=== PATIENT | female | born 1950 | race Caucasian/White ===

== ENCOUNTER → 2017-07-09 12:14 | Outpatient (CLI) | payer MEDICARE, OTHER, SELFPAY ==
--- NOTE | 2017-07-09 | DI.MG.S_ITS ---
BILATERAL DIGITAL SCREENING MAMMOGRAM 3D/2D WITH CAD: 07/09/2017 CLINICAL: Routine screening. Family history of breast cancer. Comparison is made to exams dated: 06/20/2016 mammogram, 06/08/2015 mammogram, and 04/17/2013 mammogram - [facility]. The tissue of both breasts is heterogeneously dense. This may lower the sensitivity of mammography. Current study was also evaluated with a Computer Aided Detection (CAD) system. There is a biopsy clip in the right breast. No significant masses, calcifications, or other findings are seen in either breast. There has been no significant interval change. IMPRESSION: NEGATIVE There is no mammographic evidence of malignancy. A 1 year screening mammogram is recommended. This exam was interpreted at Station ID: [id number]. NOTE: For mammograms, a report in lay terms will be sent to the patient. Approximately 15% of breast malignancies will not be visualized mammographically. In the management of a palpable breast mass, a negative mammogram must not discourage biopsy of a clinically suspicious lesion. Electronically Signed By: John murillo/yaya:07/09/2017 13:17:46 copy to: SHERIN GONZALEZ letter sent: Normal Exam ACR BI-RADS Category 1: Negative [id number]
== END ==
PROVIDERS: Family Provider Specialist; PCP Family Medicine; Visit Provider Family Medicine
DX: Z12.31 Encounter for screening mammogram for malignant neoplasm of breast (principal); Z80.3 Family history of malignant neoplasm of breast; M89.9 Disorder of bone, unspecified; E03.9 Hypothyroidism, unspecified
CPT/HCPCS: 77063; 77067; 77080

== ENCOUNTER 2018-02-15 11:11 | Emergency (ER) | payer MEDICARE, OTHER, SELFPAY ==
[2018-02-15] VITALS (9 sets, daily range): BP systolic 92–127; BP diastolic 50–65; PULSE 57–82; RESP 9–22; O2SAT 95–100
--- NOTE | 2018-02-15 11:32 | DI.RAD.S_ITS ---
PROCEDURE: XR CHEST 1V INDICATIONS: thoracic back pain/radiates to arm/tingling TECHNIQUE: One view of the chest was acquired. COMPARISON: None. FINDINGS: Surgical changes and devices: None. Lungs and pleura: No pleural effusions or pneumothorax. Lungs are clear. Mediastinum: Mediastinal contours appear normal. Heart size is normal. Bones and chest wall: No suspicious bony lesions. Overlying soft tissues appear unremarkable. IMPRESSION: Normal for age, source of pain radiating into the arm is not identified. Dictated by: Jovna Kern M.D. on 02/15/2018 at 12:17 Approved by: Jovan Kern M.D. on 02/15/2018 at 12:18
--- NOTE | 2018-02-15 11:33 | ED.CHESTPAIN ---
HPI - Chest Pain General Chief Complaint: Chest Pain Stated Complaint: BACK/ARM/CHEST PAIN Time Seen by Provider: 02/15/18 11:32 Source: patient and old records reviewed Mode of arrival: ambulatory Limitations: no limitations History of Present Illness HPI narrative: This is a 67-year-old female who comes in with complaint of thoracic back pain that is radiating to her anterior chest and down her left arm. Patient states it started Sunday. She was at [facility] with her who is having surgery. She was evaluated you would have had cardiac workup, sounds like a PE study/dissection study Um and evaluation for PE, aortic rupture or dissection, just pain/cardiac cause with no specific cause found. Patient states she was told that it might be musculoskeletal, versus shingles or another cause. Patient has not had any rash or skin changes so far. She states it is painful with movement particularly movement of her left upper extremity, she states she is having no tingling or numbness but just discomfort. Patient states hurts or is painful to take a deep inhalation. It radiates to the front of her chest the anterior side with the left arm and sort of down under the breast. Patient states she is not short of breath except for pain with inspiration. She has not had any passing out, no nausea, no vomiting no GI or urinary symptoms. Patient has been taking Tylenol she states 1500 mg every 4 hr for the last 2 days, she has only had 1 dose today. She has also been taking a muscle relaxer without any improvement. She denies any diarrhea or constipation she denies any urinary symptoms. She denies any change in her pain. She states it has been constant the entire time but does seem to get worse or better but does not go way. Patient has not had any recent trauma, injuries or similar issues recently. Related Data Home Medications Medication Instructions Recorded Confirmed calcium carbonate-vitamin D3 1 tab PO BID 02/15/18 02/15/18 [Calcium 500 + D (D3)] cholecalciferol (vitamin D3) 2,000 unit PO QPM 02/15/18 02/15/18 [Vitamin D3] estradiol [Estrace] 1 mg PO QPM 02/15/18 02/15/18 estradiol [Vagifem] 10 mcg VAGINAL 2XW 02/15/18 02/15/18 estradiol [Vivelle-Dot] 1 patch TRANSDERMAL 2XW 02/15/18 02/15/18 [id number]-[id number]-ast 1 cap PO QPM 02/15/18 02/15/18 [krill oil] levothyroxine [Tirosint] 150 mcg PO QPM 02/15/18 02/15/18 multivitamin 1 tab PO QPM 02/15/18 02/15/18 simvastatin [Zocor] 40 mg PO BEDTIME 02/15/18 02/15/18 spironolactone [Aldactone] 25 mg PO QPM 02/15/18 02/15/18 vitamin E 200 unit PO QPM 02/15/18 02/15/18 Previous Rx's Medication Instructions Recorded gabapentin 300 mg PO TID #30 cap 02/15/18 oxycodone-acetaminophen [Percocet] 1 tab PO Q4-6H PRN #10 tab 02/15/18 prednisone See Label Instructions PO PER PKG 02/15/18 DIR #21 each Allergies Allergy/AdvReac Type Severity Reaction Status Date / Time nitrofurantoin Allergy Mild SOB, tired Verified 02/15/18 13:31 [From MACROBID] pravastatin [PRAVASTATIN] Allergy Mild CHEST PAIN Verified 02/15/18 13:31 Sulfa (Sulfonamide Allergy Mild RASH Verified 02/15/18 13:31 Antibiotics) [SULFA (SULFONAMIDE ANTIBIOTICS)] Review of Systems Review of Systems All systems reviewed & are unremarkable except as noted in HPI and below Constitutional Denies fever(s) ENT Ears, Nose, Mouth, and Throat: Denies neck pain Cardiovascular Reports chest pain (Worse with movement), Denies diaphoresis, Denies syncope, Denies edema, Denies irregular heart rhythm, Denies lightheadedness, Reports radiating jaw, neck or arm pain, Denies palpitations, Denies dyspnea, Denies dyspnea on exertion and Denies orthopnea Respiratory Denies chest congestion, Denies cough, Reports pain on inspiration, Denies pain with cough, Denies dyspnea, Denies dyspnea on exertion and Denies wheezing Gastrointestinal Gastrointestinal: Denies abdominal pain, Denies change in bowel habits, Denies diarrhea, Denies nausea and Denies vomiting Genitourinary Denies urinary frequency, Denies dysuria, Denies flank pain and Denies urinary urgency Musculoskeletal Reports as per HPI, Reports back pain (Thoracic pain), Denies arthralgias, Denies neck pain and Reports radiating pain into limb (Left arm) Neurologic Denies syncope Endocrine Denies palpitations Allergic/Immunologic Denies wheezing FOR[facility]LY [facility] Medical History Acne (Chronic ~1971) Body aches (Chronic ~2012) Diverticular disease (Chronic ~2004) Endometriosis (Chronic ~1997) Fibroids (Chronic ~1997) History of irregular menstrual cycles (Chronic ~1959) History of painful menstruation (Chronic ~1979) Hypothyroidism (Chronic ~1999) Infertility (Chronic ~1979) Menstrual bleeding problem (Chronic ~1959) Migraines (Chronic ~2004) Muscle ache (Chronic ~2012) Osteoarthritis (Chronic ~2005) Shoulder pain (Chronic ~2011) Vertigo (Chronic ~1984) Surgical History Anesthesia (Resolved) History of hysterectomy (Resolved ~1997) History of tonsillectomy Status post delivery Status post hysterectomy Social History household members: spouse pets and animals: No education level: master's degree occupational status: other leisure activities: other other: Skiing, hiking, walking, kayaking seatbelt use: always helmet use: Yes water heater temp set < 120 deg: Yes working smoke detector in home: Yes fire extinguisher in home: Yes carbon monox detector in home: Yes firearms in home: No Smoking Status: Never smoker alcohol intake: current substance use type: does not use during the past year weight has: remained stable well-balanced diet: daily or most days daily servings fruits/ve-4 caffeine: Yes (2+ caffeine drinks per day) eating out: 1-3 times/week frequency: 5-6 times per week duration: 60-90 minutes/day Exam Narrative Exam Narrative: GENERAL: Alert and oriented x three, well-nourished, well-appearing female in moderate distress. HEENT: Head normocephalic, atraumatic, EOMI, pupils reactive, face symmetric, moist mucous membranes NECK: Supple, full range of motion CARDIOVASCULAR: Regular rate and rhythm without murmurs, rubs or gallops. RESPIRATORY: Breath sounds equal bilaterally, no wheezes rales or rhonchi. ABDOMEN: Soft, nontender. Normoactive bowel sounds all 4 quadrants. No guarding or rebound, rigidity, no mass : No CVA tenderness BACK: No cervical, thoracic or lumbar vertebral point tenderness. Patient does have some point tenderness in the soft tissue medial to the left scapula. Patient does have some spasm and muscle tissue tightness. Patient has full range of motion although she has discomfort with AB duction and 80 duction as well as flexion extension. Patient's gait is normal. Muscle strength is 5/5 in upper extremities, DTRs are 2/4 and lower extremities. Radial pulses 2+ bilaterally. Sensation is normal bilaterally. EXTREMITIES: Normal range of motion, no clubbing or edema. Neurovascularly intact. NEUROLOGICAL: Cranial nerves II through XII grossly intact. Moving all extremities SKIN: Warm, dry, no petechiae, no rashes or lesions. Initial Vital Signs Initial Vital Signs: Vital Signs Pulse Rate 82 02/15/18 11:21 Respiratory Rate 18 02/15/18 11:21 Blood Pressure 103/65 02/15/18 11:21 Pulse Oximetry 100 02/15/18 11:21 Course Orders Ordered: ED Orders 02/15/18 11:25 Complete Blood Count AUTO DIFF Stat Comprehensive Metabolic Panel Stat D Dimer Stat Hepatic (Liver) Panel Stat Lipase Stat Partial Thromboplastin Time Stat Prothrombin Time INR Stat Troponin & CK Cardiac Panel Stat 02/15/18 11:32 XR chest 1V Stat 02/15/18 12:54 CT cervical spine wo con Stat CT thoracic spine wo con Stat Discontinued Medications Aspirin (Aspirin Chew) 324 mg PO NOW ONE Stop: 02/15/18 11:33 Last Admin: 02/15/18 12:44 Dose: 162 mg Hydromorphone HCl (Dilaudid) 0.5 mg IV NOW ONE Stop: 02/15/18 12:54 Last Admin: 02/15/18 12:59 Dose: 0.5 mg Hydromorphone HCl (Dilaudid) 0.5 mg IV NOW ONE Stop: 02/15/18 14:45 Last Admin: 02/15/18 14:56 Dose: 0.5 mg Sodium Chloride (Normal Saline 0.9%) 1,000 mls @ 1,000 mls/hr IV BOLUS ONE Stop: 02/15/18 12:31 Last Infusion: 02/15/18 14:22 Dose: 0 mls/hr Admin: 02/15/18 12:44 Dose: 1,000 mls/hr Sodium Chloride (Normal Saline 0.45%) 500 mls @ 1,000 mls/hr IV BOLUS ONE Stop: 02/15/18 15:53 Last Admin: 02/15/18 16:31 Dose: Not Given Sodium Chloride (Normal Saline 0.45%) 500 mls @ 1,000 mls/hr IV BOLUS PRN PRN Reason: Fluid replacement Sodium Chloride (Normal Saline 0.9%) 500 mls @ 1,000 mls/hr IV BOLUS ONE Stop: 02/15/18 15:57 Last Infusion: 02/15/18 16:12 Dose: 0 mls/hr Admin: 02/15/18 15:29 Dose: 1,000 mls/hr Lorazepam (Ativan) 1 mg PO NOW ONE Stop: 02/15/18 13:31 Last Admin: 02/15/18 13:40 Dose: 1 mg Methylprednisolone (Solu-Medrol 125 Mg Vial) 80 mg IV NOW ONE Stop: 02/15/18 14:45 Last Admin: 02/15/18 14:56 Dose: 80 mg Ondansetron HCl (Zofran) 4 mg IV NOW ONE Stop: 02/15/18 12:54 Last Admin: 02/15/18 12:59 Dose: 4 mg Vital Signs - 8 hr 02/15/18 11:21 02/15/18 12:13 02/15/18 13:05 Pulse Rate 82 75 63 Respiratory Rate 18 22 15 Blood Pressure 103/65 Blood Pressure [Right Arm] 127/59 L 108/50 L Pulse Oximetry 100 99 100 02/15/18 13:47 02/15/18 14:00 02/15/18 14:30 Pulse Rate 63 57 L 67 Respiratory Rate 11 L 12 16 Blood Pressure Blood Pressure [Right Arm] 100/61 94/52 L 97/55 L Pulse Oximetry 96 100 99 02/15/18 15:01 02/15/18 15:43 02/15/18 16:13 Pulse Rate 64 67 74 Respiratory Rate 15 9 L 14 Blood Pressure Blood Pressure [Right Arm] 92/56 L 98/54 L 98/53 L Pulse Oximetry 100 95 96 MDM - Chest Pain Lab Data Attestation: I reviewed the patient's lab results. Result diagrams: 02/15/18 11:25 02/15/18 11:25 Lab Results 02/15/18 02/15/18 02/15/18 Range/Units 11:25 11:25 11:25 WBC 5.4 (4.5-11.0) X10^3/uL RBC 4.79 (4.0-5.2) X10^6/uL Hgb 14.9 (12.0-16.0) g/dL Hct 44.0 (36-46) % MCV 92.0 (80-100) fL MCH 31.2 (26-34) PG MCHC 33.9 (30-36) % RDW 13.6 (11.6-14.8) % Plt Count 244 (150-400) X10^3/uL Neut % (Auto) 47.2 L (50-75) % Lymph % (Auto) 39.0 (25-40) % Cameron % (Auto) 9.3 (3-14) % Eos % (Auto) 3.5 (2-4) % Baso % (Auto) 1.0 (0-2) % Neut # (Auto) 2500 (1662-9786) /uL PT 11.6 (10.1-12.7) SECONDS INR 1.0 (0.9-1.3) APTT 29 (26.4-36.2) SECONDS D-Dimer < 200 (<230) ng/mL Sodium 140 (137-145) mmol/L Potassium 4.5 (3.4-5.1) mmol/L Chloride 104 (98-107) mmol/L Carbon Dioxide 26 (22-32) mmol/L BUN 15 (7-17) mg/dL Creatinine 0.60 (0.52-1.04) mg/dL Estimated GFR > 60.0 (>60) mL/min BUN/Creatinine Ratio 25.0 H (6-22) Glucose 97 (80-110) mg/dL Calcium 9.6 (8.4-10.2) mg/dL Total Bilirubin 0.5 (0.2-1.3) mg/dL Conjugated Bilirubin 0.0 (0.0-0.3) md/dL Unconjugated Bilirubin 0.3 (0.0-1.1) mg/dL AST 29 (14-36) IU/L ALT 37 (9-52) IU/L Alkaline Phosphatase 49 (38-126) U/L Total Creatine Kinase 42 (30-135) U/L CK-MB (CK-2) TNP CK-MB (CK-2) Rel Index TNP Troponin I < 0.012 (0.01-0.034) ng/mL Total Protein 7.1 (6.3-8.2) g/dL Albumin 4.2 (3.5-5.0) g/dL Globulin 2.9 (1.7-4.1) g/dL Albumin/Globulin Ratio 1.4 (1.0-2.8) Lipase 97 (23-300) U/L Urine Dip Bedside Urine Glucose Negative Bedside Urine Bilirubin - Negative Bedside Urine Ketone - Negative Urine Specific [place] 1.010 Bedside Urine Occult Blood - Negative Bedside Urine pH 605 Bedside Urine Protein - Negative Bedside Urine Urobilinogen - Negative Bedside Urine Nitrite - Negative Bedside Urine Leukocytes - Negative Esterase Imaging Data CT neck: Radiologist's impression: [address] [address] [address] Scan Report Signed Patient: Shonna Aguilar MR#: [id number] : 1950 Acct:[id number] Age/Sex: 67 / F Date of Service: 02/15/18 Loc: ED Accession Number: [id number] Procedure: CT cervical spine wo con Ordering Provider: Yvonne Mtz D.O. PROCEDURE: CT CERVICAL SPINE WO CON INDICATIONS: thoracic/arm pain, intractable, worsening TECHNIQUE: Noncontrast 3 mm thick sections acquired from the skull base to the T4 level. Sagittal and coronal reformats were then constructed. For radiation dose reduction, the following was used: automated exposure control, adjustment of mA and/or kV according to patient size. COMPARISON: [facility], CR, XR CHEST 1V, 02/15/2018, 12:04. FINDINGS: Image quality: Excellent. Bones: No fractures or dislocations. Visualized superior ribs are intact. There is moderate to moderately severe degenerative disc disease from C4-5 through C6-7. Both anterior and posterior projecting osteophytes are present along the mid cervical spine best seen at C5-6 and C6-7. Significant spinal and foraminal stenosis in this region appears present. Soft tissues: Prevertebral soft tissues are normal in thickness. No paravertebral hematomas. No apical pneumothoraces. IMPRESSION: Moderately severe degenerative disc disease and facet osteoarthritis along the middle and lower thirds of the cervical spine with posterior projecting osteophytes most prominent at C5-6 and C6-7 to the degree that significant spinal and stenosis and potential for nerve root impingement appears present. No fracture is found. MR scanning may be warranted given its higher ability for detection of disc herniation and visualization of severity of spinal canal and foraminal nerve root impingement. No inflammation seen, no trauma suspected. No subluxation found. Dictated by: Jovan Kern M.D. on 02/15/2018 at 13:36 Approved by: Jovan Kern M.D. on 02/15/2018 at 13:39 CT thoracic: Radiologist's impression: [place] [address] CT Scan Report Signed Patient: Shonna Aguilar MR#: [id number] : 1950 Acct:[id number] Age/Sex: 67 / F Date of Service: 02/15/18 Loc: ED Accession Number: [id number] Procedure: CT thoracic spine wo con Ordering Provider: Yvonne Mtz D.O. PROCEDURE: CT THORACIC SPINE WO CON INDICATIONS: thoracic/arm pain on left intractable, worsening TECHNIQUE: Noncontrast 3 mm thick sections acquired through the region of interest in the thoracic spine. Sagittal and coronal reformats were then constructed. For radiation dose reduction, the following was used: automated exposure control. COMPARISON: [facility], CR, XR CHEST 1V, 02/15/2018, 12:04. [facility], CT, CT CERVICAL SPINE WO CON, 02/15/2018, 13:05. FINDINGS: Image quality: Excellent. Bones: There is normal overall bony alignment. No acute vertebral body compression fractures. No suspicious sclerotic or lytic bony lesions. Central spinal canal is of normal overall caliber. Mild degenerative disc disease is seen along the thoracic spine without evidence of fracture, inflammation or subluxation an area of spinal or foraminal stenosis is not seen. Soft tissues: No paravertebral masses or hematomas. Visualized posteromedial lungs appear clear. Multiple faceted gallstones are seen layering dependently within the gallbladder lumen the largest of which measures up to 1 cm in diameter. IMPRESSION: No acute disease over the thoracic spine. Mild degenerative disc disease and facet osteoarthritis is present without definite nerve root impingement. Note is made of multiple faceted gallstones within the gallbladder lumen, peripherally calcified, measuring up to 1 cm. Acute cholecystitis is not found. Dictated by: Jovan Kern M.D. on 02/15/2018 at 13:39 Approved by: Jovan Kern M.D. on 02/15/2018 at 13:41 ECG Data Attestation: I personally reviewed and interpreted this ECG as follows: Prior ECG tracings: available for review Interpretation: Rhythm with a rate of 74, P are interval of 153, QRS of 83, QTC of 398. No ST elevation or depression noted. Patient has a prior EKG from [facility] that appears similar from 02/11/2018. [facility] Narrative Medical decision making narrative: Discussed with patient I suspect her findings may initially be possibly thoracic although we did do troponin, EKG which not show any acute changes. The rest of her lab work was normal. She had CT angiography [facility] to rule out pulmonary embolism and for evaluation of aortic dissection both which were negative. Patient's symptoms have been constant without any changing so I suspect that this is not the case. CT of the cervical thoracic spine was ordered and patient does have some significant spinal stenosis and potential for nerve root impingement at C5 through C7 changing. This would be consistent with patient's symptoms of pain in the thoracic area and radiating down towards left arm. Discussed with patient plan for a short course of steroid it, pain medication for pain control and need for follow-up with either primary care for MRI and or orthopedic surgery. Patient was given a referral. We discussed signs symptoms to watch for and reasons to return emergently. Patient given second dose of pain medications and much improved pain, she is able to sleep in the room. Discharge Plan Departure Patient Disposition: Home Clinical Impression: Cervical radiculopathy, acute Discharge Date/Time: 02/15/18 16:32 Interventions: ED Discharge Assessment Last Done: 02/15/18 16:32 Instructions: DI for Cervical Radiculopathy Activity Restrictions/Additional Instructions: Follow up with your physician and/or orthopedic surgery in the next 3-5 days for recheck. Take steroids until gone. Take this medication with food. You may continue to take ibuprofen 800 mg every 8 hr as needed for pain. You may take Percocet 1 tablet every 6 hr as needed for breakthrough pain. This medication can make you sleepy do not drive, perform hazards activities or make any major decisions while taking this medication. You may take tylenol instead of Percocet but now with it. You should not take more than 3000mg tylenol in a 24 hour period. Return to the emergency department for new weakness, numbness difficulty with head porter baggage or inability to raise or move your arm, sudden worsening of symptoms or new or concerning symptoms. Prescriptions: New prednisone 10 mg tablets,dose pack See Label Instructions PO PER PKG DIR Qty: 21 RF: 0 oxycodone-acetaminophen [Percocet] 5-325 mg tablet 1 tab PO Q4-6H PRN (Reason: pain) Qty: 10 RF: 0 gabapentin 300 mg capsule 300 mg PO TID Qty: 30 RF: 0 No Action multivitamin Tablet 1 tab PO QPM RF: 0 estradiol [Estrace] 1 mg Tablet 1 mg PO QPM RF: 0 calcium carbonate-vitamin D3 [Calcium 500 + D (D3)] 500 mg(1,250mg) -125 unit Tablet 1 tab PO BID RF: 0 nbarq-ga-[id number]-rhy-suk-znbwocg-ast [krill oil] 1,734-505-00-80 mg Capsule 1 cap PO QPM RF: 0 spironolactone [Aldactone] 25 mg tablet 25 mg PO QPM RF: 0 simvastatin [Zocor] 40 mg tablet 40 mg PO BEDTIME RF: 0 levothyroxine [Tirosint] 150 mcg capsule 150 mcg PO QPM RF: 0 vitamin E 200 unit Capsule 200 unit PO QPM RF: 0 estradiol [Vivelle-Dot] 0.0375 mg/24 hr Patch Semiweekly 1 patch TRANSDERMAL 2XW RF: 0 cholecalciferol (vitamin D3) [Vitamin D3] 2,000 unit Tablet 2,000 unit PO QPM RF: 0 estradiol [Vagifem] 10 mcg Tablet 10 mcg VAGINAL 2XW RF: 0 Referrals: Libia Sheehan MD [Physician] - Massimo Hurtado MD [Primary Care Provider] -
--- NOTE | 2018-02-15 11:38 | PC.NURSE ---
Pt c/o L back radiating to L chest pain. Pt reports had a work up done several days ago at with same sx. Pain continue to be there and now worse as 11/28. Has been taking OTC meds and muscle relaxant at home but w/o relief. Pt reports sob when pain is severe and dizziness when stands up fast due to known low BP. Pain worse with palpations and no rash noted on the affected site.
[2018-02-15 11:42] LABS: Add Manual Diff / Slide Review NO; Eosinophils Percent Auto 3.5 % (2-4); Hemoglobin 14.9 g/dL (12.0-16.0); Mean Corpuscular HGB Conc 33.9 % (30-36); Mean Corpuscular Hemoglobin 31.2 PG (26-34); Monocytes Percent Auto 9.3 % (3-14); Neutrophils Absolute Auto 2500 /uL (1500-7000); Neutrophils Percent Auto 47.2 % (50-75); Platelet Count 244 X10^3/uL (150-400); Prothrombin Time 11.6 SECONDS (10.1-12.7); Red Blood Cell Count 4.79 X10^6/uL (4.0-5.2); Red Cell Distribution Width 13.6 % (11.6-14.8); White Blood Cell Count 5.4 X10^3/uL (4.5-11.0)
[2018-02-15 11:44] LABS: PTT Partial Thromboplastin Tim 29 SECONDS (26.4-36.2)
[2018-02-15 11:45] LABS: D Dimer < 200 ng/mL (<230)
[2018-02-15 11:46] LABS: Alanine Aminotransferase 37 IU/L (9-52); Albumin 4.2 g/dL (3.5-5.0); Albumin Globulin Ratio 1.4 (1.0-2.8); Alkaline Phosphatase 49 U/L (38-126); Aspartate Aminotransferase 29 IU/L (14-36); Bilirubin Total 0.5 mg/dL (0.2-1.3); Bilirubin Unconjugated 0.3 mg/dL (0.0-1.1); Blood Urea Nitrogen 15 mg/dL (7-17); Calcium 9.6 mg/dL (8.4-10.2); Carbon Dioxide 26 mmol/L (22-32); Chloride 104 mmol/L (98-107); Creatine Kinase 42 U/L (30-135); Estimated Glomerular Filt Rate > 60.0 mL/min (>60); Globulin 2.9 g/dL (1.7-4.1); Glucose 97 mg/dL (80-110); HEMOLYSIS < 15 (0-50); Lipase 97 U/L (23-300); Potassium 4.5 mmol/L (3.4-5.1); Sodium 140 mmol/L (137-145); Total Protein 7.1 g/dL (6.3-8.2)
[2018-02-15 11:58] LABS: Troponin I < 0.012 ng/mL (0.01-0.034)
[2018-02-15] MEDS: SODIUM CHLORIDE 0.9% 1,000 ML 1000 ML IV (12:44)
[2018-02-15] MEDS: ASPIRIN 81 MG TAB 324 MG PO (12:44)
--- NOTE | 2018-02-15 12:54 | DI.CT.S_ITS ---
PROCEDURE: CT CERVICAL SPINE WO CON INDICATIONS: thoracic/arm pain, intractable, worsening TECHNIQUE: Noncontrast 3 mm thick sections acquired from the skull base to the T4 level. Sagittal and coronal reformats were then constructed. For radiation dose reduction, the following was used: automated exposure control, adjustment of mA and/or kV according to patient size. COMPARISON: [facility], CR, XR CHEST 1V, 02/15/2018, 12:04. FINDINGS: Image quality: Excellent. Bones: No fractures or dislocations. Visualized superior ribs are intact. There is moderate to moderately severe degenerative disc disease from C4-5 through C6-7. Both anterior and posterior projecting osteophytes are present along the mid cervical spine best seen at C5-6 and C6-7. Significant spinal and foraminal stenosis in this region appears present. Soft tissues: Prevertebral soft tissues are normal in thickness. No paravertebral hematomas. No apical pneumothoraces. IMPRESSION: Moderately severe degenerative disc disease and facet osteoarthritis along the middle and lower thirds of the cervical spine with posterior projecting osteophytes most prominent at C5-6 and C6-7 to the degree that significant spinal and stenosis and potential for nerve root impingement appears present. No fracture is found. MR scanning may be warranted given its higher ability for detection of disc herniation and visualization of severity of spinal canal and foraminal nerve root impingement. No inflammation seen, no trauma suspected. No subluxation found. Dictated by: Jovan Kern M.D. on 02/15/2018 at 13:36 Approved by: Jovan eKrn M.D. on 02/15/2018 at 13:39
--- NOTE | 2018-02-15 12:54 | DI.CT.S_ITS ---
PROCEDURE: CT THORACIC SPINE WO CON INDICATIONS: thoracic/arm pain on left intractable, worsening TECHNIQUE: Noncontrast 3 mm thick sections acquired through the region of interest in the thoracic spine. Sagittal and coronal reformats were then constructed. For radiation dose reduction, the following was used: automated exposure control. COMPARISON: [facility], CR, XR CHEST 1V, 02/15/2018, 12:04. [facility], CT, CT CERVICAL SPINE WO CON, 02/15/2018, 13:05. FINDINGS: Image quality: Excellent. Bones: There is normal overall bony alignment. No acute vertebral body compression fractures. No suspicious sclerotic or lytic bony lesions. Central spinal canal is of normal overall caliber. Mild degenerative disc disease is seen along the thoracic spine without evidence of fracture, inflammation or subluxation an area of spinal or foraminal stenosis is not seen. Soft tissues: No paravertebral masses or hematomas. Visualized posteromedial lungs appear clear. Multiple faceted gallstones are seen layering dependently within the gallbladder lumen the largest of which measures up to 1 cm in diameter. IMPRESSION: No acute disease over the thoracic spine. Mild degenerative disc disease and facet osteoarthritis is present without definite nerve root impingement. Note is made of multiple faceted gallstones within the gallbladder lumen, peripherally calcified, measuring up to 1 cm. Acute cholecystitis is not found. Dictated by: Jovan Kern M.D. on 02/15/2018 at 13:39 Approved by: Jovan Kern M.D. on 02/15/2018 at 13:41
[2018-02-15] MEDS: ONDANSETRON 4 MG/2 ML INJ IV (12:59)
[2018-02-15] MEDS: HYDROMORPHONE 1 MG INJ 0.5 MG IV ×2 (12:59→14:56)
[2018-02-15] MEDS: LORazepam 0.5 MG TABLET 1 MG PO (13:40)
--- NOTE | 2018-02-15 14:22 | PC.NURSE ---
Pt reports no change in her L back and chest pain but only makes her feel sleepy. Pt sitting up in bed on her L side for comfort and waiting for test results
[2018-02-15] MEDS: methylPREDNISolone 125 MG/2 ML VIAL 80 MG IV (14:56)
[2018-02-15] MEDS: SODIUM CHLORIDE 0.9% 500 ML 1000 ML IV (15:29)
== END 2018-02-15 16:32 | disposition home or self-care (01) ==
PROVIDERS: Emergency Provider Emergency Medicine; Family Provider Specialist; PCP Family Medicine
DX: M54.12 Radiculopathy, cervical region (principal); R07.89 Other chest pain
CPT/HCPCS: 36591; 71045; 72125; 72128; 80053; 80076; 81003; 82550; 83690; 84484; 85025; 85379; 85610; 85730; 93005; 96361; 96374; 96375; 96376; 99285; J1170; J2405; J2930

== ENCOUNTER → 2018-02-28 11:10 | Outpatient (CLI) | payer MEDICARE, OTHER, SELFPAY ==
--- NOTE | 2018-02-28 | DI.MRI.S_ITS ---
PROCEDURE: MR CERVICAL SPINE WO CON INDICATIONS: Other spondylosis with radiculopathy, cervical region TECHNIQUE: Noncontrast sagittal T1 spin echo and T2 fast spin echo, sagittal STIR, foraminal oblique sagittal T2 fast spin echo, and axial gradient echo or T2 fast spin echo through the cervical spine. COMPARISON: None. FINDINGS: Image quality: Excellent. Alignment and Curvature: There is mild kyphosis of the cervical spine centered at C3-4. No spondylolisthesis. Bone Marrow: Marrow demonstrates normal overall signal. Spinal Cord: Visualized spinal cord has normal size and signal. No cerebellar tonsillar herniation. Paraspinous Soft Tissues: No paravertebral masses. Prevertebral soft tissues are normal in thickness. C2-C3: Mild disc desiccation and height loss. Broad-based disc bulge. No canal stenosis. Mild bilateral foraminal narrowing. C3-C4: Moderate disc desiccation and height loss. Moderate anterior osteophytosis. Broad based disc bulge. Mild canal stenosis. Moderate bilateral neuroforaminal stenosis. C4-C5: Moderate to severe disc desiccation and height loss. Anterior osteophytosis. Moderate canal stenosis. Severe bilateral foraminal narrowing. C5-C6: Severe disc desiccation and height loss. Anterior osteophytosis. Broad based disc bulge with moderate canal stenosis. Severe bilateral foraminal stenosis. C6-C7: Moderate disc desiccation and height loss. Broad-based disc bulge. Moderate canal stenosis. Moderate bilateral neuroforaminal stenosis. C7-T1: Mild disc desiccation and height loss. Broad-based disc bulge. Mild bilateral foraminal stenosis. IMPRESSION: 1. Degenerative changes most severe within the mid cervical spine where there is moderate to severe disc desiccation and height loss at multiple levels. 2. Mild canal stenosis at C3-4, moderate canal stenosis at C4-5, C5-6, and C6-7. 3. Severe bilateral foraminal stenosis at C4-5 and C5-6. Moderate bilateral foraminal narrowing at C6-7 and C3-4. Dictated by: Barbara Camacho M.D. on 02/28/2018 at 12:15 Approved by: Barbara Camacho M.D. on 02/28/2018 at 12:22
== END ==
PROVIDERS: Family Provider Specialist; PCP Family Medicine; Visit Provider Physical Medicine & Rehabilitation Sports Medicine
DX: M47.22 Other spondylosis with radiculopathy, cervical region (principal); M48.02 Spinal stenosis, cervical region
CPT/HCPCS: 72141

== ENCOUNTER → 2018-06-18 10:23 | Outpatient (CLI) | payer MEDICARE, OTHER, SELFPAY ==
[2018-06-18 11:22] LABS: Add Manual Diff / Slide Review NO; Basophils Absolute Auto 100 /uL (0-100); Basophils Percent Auto 1.1 % (0-2); Eosinophils Absolute Auto 100 /uL (0-450); Eosinophils Percent Auto 2.1 % (2-4); Hematocrit 44.3 % (36-46); Hemoglobin 14.8 g/dL (12.0-16.0); Lymphocytes Absolute Auto 1900 /uL (1100-4500); Lymphocytes Percent Auto 39.2 % (25-40); Mean Corpuscular HGB Conc 33.5 % (30-36); Mean Corpuscular Hemoglobin 30.8 PG (26-34); Mean Corpuscular Volume 92.1 fL (80-100); Monocytes Absolute Auto 400 /uL (0-900); Monocytes Percent Auto 9.2 % (3-14); Neutrophils Absolute Auto 2300 /uL (1500-7000); Neutrophils Percent Auto 48.4 % (50-75); Platelet Count 260 X10^3/uL (150-400); Red Blood Cell Count 4.81 X10^6/uL (4.0-5.2); Red Cell Distribution Width 13.6 % (11.6-14.8); White Blood Cell Count 4.7 X10^3/uL (4.5-11.0)
[2018-06-18 11:40] LABS: Alanine Aminotransferase 42 IU/L (9-52); Albumin 4.3 g/dL (3.5-5.0); Albumin Globulin Ratio 1.4 (1.0-2.8); Alkaline Phosphatase 59 U/L (38-126); Aspartate Aminotransferase 33 IU/L (14-36); BUN Creatinine Ratio 15.7 (6-22); Bilirubin Total 0.7 mg/dL (0.2-1.3); Blood Urea Nitrogen 11 mg/dL (7-17); Calcium 9.9 mg/dL (8.4-10.2); Carbon Dioxide 26 mmol/L (22-32); Chloride 102 mmol/L (98-107); Cholesterol 163 mg/dL (140-199); Estimated Glomerular Filt Rate > 60.0 mL/min (>60); Glucose 105 mg/dL (80-110); HDL Cholesterol 57 mg/dL (40-60); HEMOLYSIS < 15 (0-50); LDL Cholesterol Calculated 87 mg/dL (<100); Potassium 4.9 mmol/L (3.4-5.1); Sodium 137 mmol/L (137-145); Total Protein 7.3 g/dL (6.3-8.2); Triglycerides 97 mg/dL (35-150)
[2018-06-18 12:07] LABS: TSH w/ Reflex to FT4 < 0.02 uIU/mL (0.47-4.68)
[2018-06-18 12:42] LABS: Free T4, Direct Thyroxine 2.12 ng/dL (0.78-2.19)
== END ==
PROVIDERS: Family Provider Specialist; PCP Family Medicine; Visit Provider Family Medicine
DX: E03.9 Hypothyroidism, unspecified (principal); E78.5 Hyperlipidemia, unspecified
CPT/HCPCS: 36415; 80053; 80061; 84439; 84443; 85025

== ENCOUNTER → 2018-08-08 09:06 | Outpatient (CLI) | payer MEDICARE, OTHER, SELFPAY ==
--- NOTE | 2018-08-08 | DI.MG.S_ITS ---
BILATERAL DIGITAL SCREENING MAMMOGRAM 3D/2D WITH CAD: 08/08/2018 CLINICAL: Routine screening. Family history of breast cancer. Comparison is made to exams dated: 07/09/2017 mammogram, 06/20/2016 mammogram, and 06/08/2015 mammogram - [facility]. The tissue of both breasts is heterogeneously dense. This may lower the sensitivity of mammography. Current study was also evaluated with a Computer Aided Detection (CAD) system. There is a benign biopsy clip in the right breast. No significant masses, calcifications, or other findings are seen in either breast. There has been no significant interval change. IMPRESSION: NEGATIVE There is no mammographic evidence of malignancy. A 1 year screening mammogram is recommended. This exam was interpreted at Station ID: [id number]. NOTE: For mammograms, a report in lay terms will be sent to the patient. Approximately 15% of breast malignancies will not be visualized mammographically. In the management of a palpable breast mass, a negative mammogram must not discourage biopsy of a clinically suspicious lesion. Electronically Signed By: Barbara montez/yaya:08/08/2018 11:27:22 copy to: SHERIN GONZALEZ letter sent: Normal Exam ACR BI-RADS Category 1: Negative 3341F
== END ==
PROVIDERS: PCP Family Medicine; Visit Provider Family Medicine
DX: Z12.31 Encounter for screening mammogram for malignant neoplasm of breast (principal); Z80.3 Family history of malignant neoplasm of breast
CPT/HCPCS: 77063; 77067

== ENCOUNTER → 2019-02-17 15:18 | Outpatient (CLI) | payer MEDICARE, OTHER, SELFPAY ==
--- NOTE | 2019-02-17 15:24 | DI.RAD.S_ITS ---
PROCEDURE: XR ABDOMEN MIN 2V INDICATIONS: r/o SBO TECHNIQUE: 2 views of the abdomen were acquired. COMPARISON: None. FINDINGS: Surgical changes and devices: None. Bowel: No pneumoperitoneum. The bowel gas pattern is normal. Soft tissues: Numerous gallstones project in the right upper quadrant. There are bilateral pelvic phleboliths. Bones: No suspicious bony abnormalities. Lateral curve of the spine and multilevel discogenic changes. IMPRESSION: No specific evidence of bowel obstruction seen at this time although if the patient's symptoms do not improve, continued surveillance with abdominal series radiographs could be performed. Incidental cholelithiasis Dictated by: Edwin Way M.D. on 02/17/2019 at 16:05 Approved by: Edwin Way M.D. on 02/17/2019 at 16:34
== END ==
PROVIDERS: PCP Family Medicine; Visit Provider Physician Assistant
DX: R10.9 Unspecified abdominal pain (principal); K80.20 Calculus of gallbladder without cholecystitis without obstruction
CPT/HCPCS: 74019

== ENCOUNTER → 2019-08-18 09:39 | Outpatient (CLI) | payer MEDICARE, OTHER, SELFPAY ==
--- NOTE | 2019-08-18 | DI.MG.S_ITS ---
BILATERAL DIGITAL SCREENING MAMMOGRAM 3D/2D WITH CAD: 08/18/2019 CLINICAL: Routine screening. Family history of breast cancer. Comparison is made to exams dated: 08/08/2018 mammogram, 07/09/2017 mammogram, and 06/20/2016 mammogram - [facility]. There are scattered fibroglandular elements in both breasts. Current study was also evaluated with a Computer Aided Detection (CAD) system. There is a biopsy clip in the right breast. No significant masses, calcifications, or other findings are seen in either breast. There has been no significant interval change. IMPRESSION: NEGATIVE There is no mammographic evidence of malignancy. A 1 year screening mammogram is recommended. This exam was interpreted at Station ID: [id number]. NOTE: For mammograms, a report in lay terms will be sent to the patient. Approximately 15% of breast malignancies will not be visualized mammographically. In the management of a palpable breast mass, a negative mammogram must not discourage biopsy of a clinically suspicious lesion. Electronically Signed By: John murillo/yaya:08/18/2019 10:19:55 copy to: SHERIN GONZALEZ letter sent: Normal Exam ACR BI-RADS Category 1: Negative 3341F
== END ==
PROVIDERS: PCP Family Medicine; Referring Provider Family Medicine; Visit Provider Family Medicine
DX: Z12.31 Encounter for screening mammogram for malignant neoplasm of breast (principal); Z80.3 Family history of malignant neoplasm of breast
CPT/HCPCS: 77063; 77067

== ENCOUNTER → 2020-04-23 09:29 | Outpatient (CLI) | payer MEDICARE, OTHER, SELFPAY ==
[2020-04-23 10:27] LABS: Add Manual Diff / Slide Review NO; Basophils Absolute Auto 0 /uL (0-100); Basophils Percent Auto 0.8 % (0-2); Eosinophils Absolute Auto 100 /uL (0-450); Hematocrit 42.9 % (36-46); Hemoglobin 14.4 g/dL (12.0-16.0); Lymphocytes Absolute Auto 1700 /uL (1100-4500); Lymphocytes Percent Auto 32.6 % (25-40); Mean Corpuscular HGB Conc 33.5 % (30-36); Mean Corpuscular Hemoglobin 30.7 PG (26-34); Mean Corpuscular Volume 91.4 fL (80-100); Monocytes Absolute Auto 500 /uL (0-900); Monocytes Percent Auto 9.8 % (3-14); Neutrophils Absolute Auto 2900 /uL (1500-7000); Neutrophils Percent Auto 54.8 % (50-75); Platelet Count 223 X10^3/uL (150-400); Red Blood Cell Count 4.69 X10^6/uL (4.0-5.2); Red Cell Distribution Width 13.4 % (11.6-14.8); White Blood Cell Count 5.3 X10^3/uL (4.5-11.0)
[2020-04-23 10:51] LABS: Alanine Aminotransferase 26 IU/L (<35); Albumin 3.8 g/dL (3.5-5.0); Albumin Globulin Ratio 1.5 (1.0-2.8); Alkaline Phosphatase 59 U/L (38-126); Aspartate Aminotransferase 26 IU/L (14-36); BUN Creatinine Ratio 23.7 (6-22); Bilirubin Total 0.6 mg/dL (0.2-1.3); Blood Urea Nitrogen 14 mg/dL (7-17); Calcium 9.6 mg/dL (8.4-10.2); Carbon Dioxide 28 mmol/L (22-32); Chloride 105 mmol/L (98-107); Cholesterol 151 mg/dL (140-199); Estimated Glomerular Filt Rate > 60.0 mL/min (>60); Globulin 2.5 g/dL (1.7-4.1); Glucose 103 mg/dL (80-110); HDL Cholesterol 47 mg/dL (40-60); HEMOLYSIS < 15 (0-50); LDL Cholesterol Calculated 77 mg/dL (<100); Potassium 4.4 mmol/L (3.4-5.1); Sodium 138 mmol/L (137-145); Total Protein 6.3 g/dL (6.3-8.2); Triglycerides 136 mg/dL (35-150)
[2020-04-23 11:25] LABS: TSH w/ Reflex to FT4 < 0.02 uIU/mL (0.47-4.68)
[2020-04-23 12:37] LABS: Free T4, Direct Thyroxine 1.97 ng/dL (0.78-2.19)
== END ==
PROVIDERS: PCP Family Medicine; Referring Provider Family Medicine; Visit Provider Family Medicine
DX: E03.9 Hypothyroidism, unspecified (principal); E78.5 Hyperlipidemia, unspecified
CPT/HCPCS: 36415; 80053; 80061; 84439; 84443; 85025

== ENCOUNTER → 2020-06-22 15:43 | Outpatient (CLI) | payer MEDICARE, OTHER, SELFPAY | PROVIDERS: PCP Family Medicine; Visit Provider Family Medicine | DX: Z01.818 Encounter for other preprocedural examination (principal) | CPT/HCPCS: 87797 ==

== ENCOUNTER → 2020-07-05 15:49 | Outpatient (CLI) | payer MEDICARE, OTHER, SELFPAY ==
[2020-07-05 17:27] LABS: Add Manual Diff / Slide Review NO; Basophils Absolute Auto 0 /uL (0-100); Basophils Percent Auto 0.7 % (0-2); Eosinophils Absolute Auto 100 /uL (0-450); Eosinophils Percent Auto 2.1 % (2-4); Hemoglobin 14.2 g/dL (12.0-16.0); Lymphocytes Absolute Auto 2600 /uL (1100-4500); Mean Corpuscular HGB Conc 33.1 % (30-36); Mean Corpuscular Hemoglobin 30.3 PG (26-34); Mean Corpuscular Volume 91.6 fL (80-100); Monocytes Absolute Auto 400 /uL (0-900); Monocytes Percent Auto 5.9 % (3-14); Neutrophils Absolute Auto 3500 /uL (1500-7000); Neutrophils Percent Auto 52.3 % (50-75); Platelet Count 247 X10^3/uL (150-400); Red Cell Distribution Width 14.2 % (11.6-14.8); White Blood Cell Count 6.7 X10^3/uL (4.5-11.0)
== END ==
PROVIDERS: PCP Family Medicine; Referring Provider Family Medicine; Visit Provider Family Medicine
DX: Z01.818 Encounter for other preprocedural examination (principal)
CPT/HCPCS: 85025

== ENCOUNTER → 2020-10-22 13:13 | Outpatient (CLI) | payer MEDICARE, OTHER, SELFPAY ==
--- NOTE | 2020-10-22 | DI.MG.S_ITS ---
BILATERAL DIGITAL SCREENING MAMMOGRAM 3D/2D WITH CAD: 10/22/2020 CLINICAL: Routine screening. Family history of breast cancer. Comparison is made to exams dated: 08/18/2019 mammogram, 08/08/2018 mammogram, 07/09/2017 mammogram, and 06/20/2016 mammogram - [facility]. There are scattered fibroglandular elements in both breasts. Current study was also evaluated with a Computer Aided Detection (CAD) system. There is a biopsy clip in the right breast. No significant masses, calcifications, or other findings are seen in either breast. There has been no significant interval change. IMPRESSION: NEGATIVE There is no mammographic evidence of malignancy. A 1 year screening mammogram is recommended. This exam was interpreted at Station ID: [id number]. NOTE: For mammograms, a report in lay terms will be sent to the patient. Approximately 15% of breast malignancies will not be visualized mammographically. In the management of a palpable breast mass, a negative mammogram must not discourage biopsy of a clinically suspicious lesion. Electronically Signed By: Pastora shepard/yaya:10/22/2020 14:45:59 copy to: SHERIN GONZALEZ letter sent: Normal Exam ACR BI-RADS Category 1: Negative 3341F
== END ==
PROVIDERS: PCP Specialist; Referring Provider Family Medicine; Visit Provider Family Medicine
DX: Z12.31 Encounter for screening mammogram for malignant neoplasm of breast (principal); Z80.3 Family history of malignant neoplasm of breast
CPT/HCPCS: 77063; 77067

== ENCOUNTER → 2021-10-31 09:41 | Outpatient (CLI) | payer MEDICARE, OTHER, SELFPAY ==
[2021-10-31 12:51] LABS: COVID19 -Nasal RAPID Negative (Negative)
== END ==
PROVIDERS: PCP Family Medicine; Visit Provider Surgery
DX: Z01.812 Encounter for preprocedural laboratory examination (principal); Z20.822 Contact with and (suspected) exposure to COVID-19
CPT/HCPCS: 87635; C9803

== ENCOUNTER 2021-11-01 13:11 | Day surgery (SDC) | payer MEDICARE, OTHER, SELFPAY ==
[2021-11-01] VITALS (7 sets, daily range): BP systolic 96–131; BP diastolic 47–74; PULSE 76–90; RESP 13–19; TEMP 36.2–36.4; O2SAT 94–98; BMI 29.2
[2021-11-01] MEDS: LACTATED RINGERS 1,000 ML 200 ML IV (13:26)
--- NOTE | 2021-11-01 13:48 | P.HP_ITS ---
History of Present Illness History of Present Illness Date Patient Seen: 11/01/21 Time Patient Seen: 13:48 Chief complaint: [facility] [place] Narrative: The patient presents for colorectal screening. Previous colonoscopy 10 years ago normal. No personal or family history of colon cancer. On further history denies any recent gastrointestinal symptoms. No nausea, vomiting, abdominal pain, loss of appetite, unexplained weight loss, change in bowel habits, diarrhea, constipation, melena, hematochezia, or bright red blood per rectum. Patient History Medical History Acne (~1971) Body aches (~2012) Diverticular disease (~2004) Endometriosis (~1997) Fibroids (~1997) History of irregular menstrual cycles (~1959) History of painful menstruation (~1979) Hypothyroidism (~1999) Infertility (~1979) Menstrual bleeding problem (~1959) Migraines (~2004) Muscle ache (~2012) Osteoarthritis (~2005) Shoulder pain (~2011) Vertigo (~1984) Surgical History Anesthesia History of hysterectomy (~1997) History of tonsillectomy Status post delivery Status post hysterectomy Family & Social History Family History Brother Age: 66 High cholesterol Brother Age: 65 Diabetes mellitus High cholesterol Father Colon cancer Grandfather Cancer Heart disease Stroke Obesity Mother Heart disease Hypertension Obesity Sister Heart disease Hypertension Sister Age: 68 Liver disease Social History: household members spouse other Skiing, hiking, walking, kayaking Tobacco & Substance use: Smoking Status Never smoker alcohol intake current alcohol intake frequency a few times a week Substance Use Type does not use Meds Home Medications and Allergies Home Medications Medication Instructions Recorded Confirmed Type calcium carbonate 500 mg-vitamin 1 tab PO BID 02/15/18 11/01/21 History D3 3.125 mcg (125 unit) tablet (Calcium) multivitamin 1 tab PO QPM 02/15/18 11/01/21 History CMP Estradiol Vaginal Pearls 25mcg 25 mcg vaginal 2XW #30 ea 03/12/19 11/01/21 Rx eflornithine 13.9 % topical cream 1 applictn topical BID hair growth 03/12/19 11/01/21 Rx (Vaniqa) #45 grams Lactobacillus rhamnosus GG 20 20 cell PO DAILY 04/28/20 11/01/21 History billion cell capsule (Probiotic Digestive Care) aspirin 81 mg tablet,delayed 81 mg PO DAILY 04/28/20 11/01/21 History release (Adult Aspirin Regimen) cholecalciferol (vitamin D3) 25 25 mcg PO DAILY 04/28/20 11/01/21 History mcg (1,000 unit) capsule magnesium 30 mg tablet 30 mg PO DAILY 04/28/20 11/01/21 History omega-3 fatty acids-fish oil 360 1 cap PO DAILY 04/28/20 11/01/21 History mg-1,200 mg capsule (Fish Oil) estradiol 0.0375 mg/24 hr 1 patch transdermal 2XW #24 ea 01/10/21 Rx semiweekly transdermal patch levothyroxine 150 mcg tablet See Rx Instructions .Route 07/07/21 11/01/21 Rx .COMPLEX #90 tabs simvastatin 40 mg tablet See Rx Instructions .Route 07/07/21 11/01/21 Rx .COMPLEX #90 tabs spironolactone 25 mg tablet See Rx Instructions .Route 07/07/21 11/01/21 Rx .COMPLEX #90 tabs estradiol 0.0375 mg/24 hr 0.0375 topical 2XW 11/01/21 History semiweekly transdermal patch Allergies Allergy/AdvReac Type Severity Reaction Status Date / Time nitrofurantoin Allergy Mild SOB, tired Verified 11/01/21 13:10 [From MACROBID] pravastatin [PRAVASTATIN] Allergy Mild CHEST PAIN Verified 11/01/21 13:10 Sulfa (Sulfonamide Allergy Mild RASH Verified 06/22/20 15:24 Antibiotics) [SULFA (SULFONAMIDE ANTIBIOTICS)] Exam Vital Signs (past 8 hours): - 11/01/21 13:38 Temperature 97.5 F L Pulse Rate 90 Respiratory Rate 16 Blood Pressure 131/74 Pulse Oximetry 95 Oxygen Delivery Method Room Air Oxygen Delivery Method Room Air Narrative Exam Narrative: General adult woman alert oriented no acute distress Abdomen soft nontender nondistended Assessment & Plan Assessment & Plan narrative: The patient requires colorectal screening and colonoscopy is recommended. Technical details were discussed. Risks, benefits, alternatives explained. Risks including but not limited to myocardial infarction, aspiration, bleeding, pain, missed lesion, incomplete examination, need for further radiographic studies, colonic perforation, and need for major abdominal surgery were discussed. All questions were answered to their satisfaction, and they are in agreement with this plan. Time Spent With Patient Critical Care time: I spent a total of [] minutes of critical care time on this patient's care today; this time is exclusive of procedural time.
[2021-11-01] MEDS: ONDANSETRON 4 MG/2 ML INJ IV (13:54)
[2021-11-01] MEDS: fentaNYL 100 MCG/2 ML INJ IV (14:22)
[2021-11-01] MEDS: MIDAZOLAM 5 MG/5 ML VIAL IV (14:22)
--- NOTE | 2021-11-01 14:25 | PM.OP.COLON ---
Operative Date/Time/Diagnoses Date of procedure: 11/01/21 Time of procedure: 14:25 Pre-op diagnosis: Screening colonoscopy Post-op diagnosis: same Procedure & Clinicians Study performed: Screening colonoscopy Same procedure as scheduled: Yes Indications: Screening Surgeon: Carmine Bauer Procedure Notes Procedure in detail: Medications: Conscious sedation using 5mg IV midazolam and 100mcg IV of fentanyl The history and physical was performed/updated and the patient is ASA class is 2. The procedure was discussed in detail with the patient. Potential risks complications including infection, bleeding, missed diagnosis, perforation, need for surgery, and were explained. Their questions were answered and informed consent was obtained. Patient was brought to the procedure room and placed standard monitoring equipment. The patient's vital signs were monitored continuously throughout the entire procedure. Prior to starting time-out was performed. The patient was placed in the left lateral recumbent position. Procedural sedation was administered. Examination began with a thorough inspection of the perianal area there was no evidence of fissures, fistulae, external hemorrhoids or cutaneous malignancy. The colonoscopy scope was then placed into the anal canal and was advanced to the cecum, which was identified by the ileocecal valve, the appendiceal orifice and the confluence of the taenia. The scope was then slowly withdrawn examining colon thoroughly in all directions, irrigating it of any residual stool. FINDINGS 1. No masses or polyps 2. Sigmoid diverticulosis 3. Tortuous colon The patient tolerated the procedure well. They will be discharged once criteria are met. The prep was of good/excellent quality. The withdrawl time was 8 minutes. The sedation time was 24 minutes. Specimen(s): none sent Complications: none Impression: Normal colonoscopy Post-procedure Recommendations: High fiber diet Disposition: same day surgery
== END 2021-11-01 14:52 | disposition home or self-care (01) ==
PROVIDERS: PCP Family Medicine; Referring Provider Surgery; Visit Provider Surgery
PROC: 0DJD8ZZ Inspection of Lower Intestinal Tract, Via Natural or Artificial Opening Endoscopic (ICD-10-PCS; CPT 45378; principal; 2021-11-01 14:15)
DX: Z12.11 Encounter for screening for malignant neoplasm of colon (principal); K57.30 Diverticulosis of large intestine without perforation or abscess without bleeding
CPT/HCPCS: G0121; 99152; 99153; J2250; J2405; J3010

== ENCOUNTER → 2021-12-06 08:27 | Outpatient (CLI) | payer MEDICARE, OTHER, SELFPAY ==
--- NOTE | 2021-12-06 | DI.MG.S_ITS ---
BILATERAL DIGITAL SCREENING MAMMOGRAM 3D/2D WITH CAD: 12/06/2021 CLINICAL: Routine screening. Family history of breast cancer. Comparison is made to exams dated: 10/22/2020 mammogram, 08/18/2019 mammogram, and 08/08/2018 mammogram - [facility]. There are scattered areas of fibroglandular density in both breasts (category b / 25%-50% glandular tissue). Current study was also evaluated with a Computer Aided Detection (CAD) system. There is a biopsy clip in the right breast. No significant masses, calcifications, or other findings are seen in either breast. There has been no significant interval change. IMPRESSION: NEGATIVE There is no mammographic evidence of malignancy. A 1 year screening mammogram is recommended. Based on the Tyrer Cuzick model (a risk assessment model) the patient's lifetime risk is 4.7% and her 10 year risk is 3.2%. According to the ACR, ACS, and NCCN guidelines, an annual breast MRI exam along with mammogram is recommended if the patient's lifetime risk is 20% or greater. This exam was interpreted at Station ID: [id number]. NOTE: For mammograms, a report in lay terms will be sent to the patient. Approximately 15% of breast malignancies will not be visualized mammographically. In the management of a palpable breast mass, a negative mammogram must not discourage biopsy of a clinically suspicious lesion. Electronically Signed By: Pastora shepard/yaya:12/06/2021 13:04:05 copy to: SHERIN GONZALEZ letter sent: Normal Exam ACR BI-RADS Category 1: Negative 3341F
== END ==
PROVIDERS: PCP Family Medicine; Referring Provider Family Medicine; Visit Provider Family Medicine
DX: Z12.31 Encounter for screening mammogram for malignant neoplasm of breast (principal); Z80.3 Family history of malignant neoplasm of breast
CPT/HCPCS: 77063; 77067

== ENCOUNTER → 2022-01-25 08:52 | Outpatient (CLI) | payer MEDICARE, OTHER, SELFPAY ==
[2022-01-25 09:28] LABS: Add Manual Diff / Slide Review NO; Basophils Absolute Auto 100 /uL (0-100); Basophils Percent Auto 1.1 % (0-2); Eosinophils Absolute Auto 300 /uL (0-450); Eosinophils Percent Auto 4.8 % (2-4); Hematocrit 41.7 % (36-46); Hemoglobin 14.1 g/dL (12.0-16.0); Lymphocytes Absolute Auto 1900 /uL (1100-4500); Lymphocytes Percent Auto 35.3 % (25-40); Mean Corpuscular HGB Conc 33.9 % (30-36); Mean Corpuscular Hemoglobin 30.4 PG (26-34); Mean Corpuscular Volume 89.8 fL (80-100); Monocytes Absolute Auto 500 /uL (0-900); Monocytes Percent Auto 8.5 % (3-14); Neutrophils Absolute Auto 2700 /uL (1500-7000); Neutrophils Percent Auto 50.3 % (50-75); Platelet Count 217 X10^3/uL (150-400); Red Blood Cell Count 4.64 X10^6/uL (4.0-5.2); Red Cell Distribution Width 14.3 % (11.6-14.8); White Blood Cell Count 5.3 X10^3/uL (4.5-11.0)
[2022-01-25 10:08] LABS: Alanine Aminotransferase 33 IU/L (<35); Albumin 3.9 g/dL (3.5-5.0); Albumin Globulin Ratio 1.4 (1.0-2.8); Alkaline Phosphatase 58 U/L (38-126); Aspartate Aminotransferase 26 IU/L (14-36); BUN Creatinine Ratio 19.4 (6-22); Bilirubin Total 0.4 mg/dL (0.2-1.3); Blood Urea Nitrogen 12 mg/dL (7-17); Calcium 8.8 mg/dL (8.4-10.2); Carbon Dioxide 27 mmol/L (22-32); Chloride 107 mmol/L (98-107); Cholesterol 153 mg/dL (140-199); Estimated Glomerular Filt Rate > 60 mL/min (>60); Globulin 2.7 g/dL (1.7-4.1); Glucose 110 mg/dL (80-110); HDL Cholesterol 43 mg/dL (40-60); HEMOLYSIS < 15 (0-50); LDL Cholesterol Calculated 86 mg/dL (<100); Potassium 4.2 mmol/L (3.4-5.1); Sodium 140 mmol/L (137-145); Total Protein 6.6 g/dL (6.3-8.2); Triglycerides 118 mg/dL (35-150)
[2022-01-25 10:32] LABS: Thyroid Stimulating Hormone < 0.015 uIU/mL (0.47-4.68)
== END ==
PROVIDERS: PCP Family Medicine; Referring Provider Family Medicine; Visit Provider Family Medicine
DX: E03.9 Hypothyroidism, unspecified (principal); E78.2 Mixed hyperlipidemia; Z79.899 Other long term (current) drug therapy
CPT/HCPCS: 36415; 80053; 80061; 84443; 85025

== ENCOUNTER → 2022-05-16 11:14 | Outpatient (CLI) | payer MEDICARE, OTHER, SELFPAY ==
--- NOTE | 2022-05-16 13:02 | DI.DEXA.S_ITS ---
Indication: postmenopausal; screening for osteoporosis; Referring Provider: OSMANY BRANNON Study: Bone densitometry was performed. Exam Date: May 16, 2022 Accession number: [id number] Bone Density: Region BMD T-score Z-score Classification AP Spine(L1, L2, L4) 1.283 2.3 4.5 Normal Femoral Neck (Left) 0.820 -0.3 1.7 Normal Total Hip (Left) 1.023 0.7 2.3 Normal Femoral Neck (Right) 0.934 0.8 2.7 Normal Total Hip (Right) 1.042 0.8 2.4 Normal Total Hip Mean 1.033 0.8 2.4 Normal World Health Organization criteria for BMD impression classify patients as: Normal (T-score at or above -1.0), Osteopenia (T-score between -1.0 and -2.5), or Osteoporosis (T-score at or below -2.5). 10-year Fracture Risk: FRAX not reported because: All T-scores for Spine Total, Hip Total, Femoral Neck at or above -1.0 Previous Exams: -- Region Exam Age BMD T-score BMD Change BMD Change Date g/cm2 vs Baseline vs Previous -- AP Spine (L1-L2,L4) 05/16/2022 72 1.283 2.3 -0.077 (-5.6%)# -0.077 (-5.6%)# 07/09/2017 67 1.360 3.0 Total Hip(Left) 05/16/2022 72 1.023 0.7 -0.013 (-1.2%)# -0.013 (-1.2%)# 07/09/2017 67 1.036 0.8 Total Hip(Right) 05/16/2022 72 1.042 0.8 0.013 (1.2%)# 0.013 (1.2%)# 07/09/2017 67 1.030 0.7 -- *Denotes significance at 95% confidence level, LSC for AP Spine = 0.022 g/cm2, LSC for Total Hip = 0.027 g/cm2 # Denotes dissimilar scan types or analysis methods Impression: The patient has normal bone mass. No significant bone loss was observed. Discussion: BONE DENSITY IS ABOVE THE MINIMUM DESIRABLE LEVEL AT ALL SKELETAL SITES TESTED. This patient?s bone mineral density is above the minimum desirable level (T-score -1.0 or better) at all sites measured. The patient should follow a healthful lifestyle (good nutrition with adequate calcium and vitamin D, and appropriate weight-bearing exercise). Follow-Up: Consider repeating this study in 5 years or sooner if there is some new clinical indication. Reported by: RUSS MARTINEZ MD on 05/16/2022 12:02:00 PM.
== END ==
PROVIDERS: PCP Family Medicine; Referring Provider Family Medicine; Visit Provider Family Medicine
DX: Z78.0 Asymptomatic menopausal state; Z13.820 Encounter for screening for osteoporosis; E21.3 Hyperparathyroidism, unspecified; R29.890 Loss of height; Z90.710 Acquired absence of both cervix and uterus
CPT/HCPCS: 77080

== ENCOUNTER → 2022-12-22 07:56 | Outpatient (CLI) | payer MEDICARE, OTHER, SELFPAY ==
--- NOTE | 2022-12-22 | DI.MG.S_ITS ---
BILATERAL DIGITAL SCREENING MAMMOGRAM 3D/2D WITH CAD: 12/22/2022 CLINICAL: Routine screening. Family history of breast cancer. Comparison is made to exams dated: 12/06/2021 mammogram, 10/22/2020 mammogram, and 08/18/2019 mammogram - [facility]. There are scattered areas of fibroglandular density in both breasts (category b / 25%-50% glandular tissue). Current study was also evaluated with a Computer Aided Detection (CAD) system. There are benign calcifications in both breasts. There also is a biopsy clip in the right breast. No significant masses, calcifications, or other findings are seen in either breast. There has been no significant interval change. IMPRESSION: BENIGN There is no mammographic evidence of malignancy. A 1 year screening mammogram is recommended. Based on the Tyrer Cuzick model (a risk assessment model) the patient's lifetime risk is 4.4% and her 10 year risk is 3.3%. According to the ACR, ACS, and NCCN guidelines, an annual breast MRI exam along with mammogram is recommended if the patient's lifetime risk is 20% or greater. This exam was interpreted at Station ID: [id number]. NOTE: For mammograms, a report in lay terms will be sent to the patient. Approximately 15% of breast malignancies will not be visualized mammographically. In the management of a palpable breast mass, a negative mammogram must not discourage biopsy of a clinically suspicious lesion. Electronically Signed By: Zaire block/yaya:12/22/2022 13:06:04 copy to: SHERIN GONZALEZ letter sent: Normal Exam ACR BI-RADS Category 2: Benign Finding(s) 3342F
== END ==
PROVIDERS: PCP Family Medicine; Referring Provider Family Medicine; Visit Provider Family Medicine
DX: Z12.31 Encounter for screening mammogram for malignant neoplasm of breast (principal); Z80.3 Family history of malignant neoplasm of breast
CPT/HCPCS: 77063; 77067

== ENCOUNTER → 2023-03-29 16:34 | Outpatient (CLI) | payer MEDICARE, OTHER, SELFPAY ==
[2023-03-29 17:47] LABS: Add Manual Diff / Slide Review NO; Basophils Absolute Auto 100 /uL (0-100); Basophils Percent Auto 0.9 % (0-2); Eosinophils Absolute Auto 200 /uL (0-450); Eosinophils Percent Auto 2.8 % (2-4); Hematocrit 42.6 % (36-46); Hemoglobin 14.5 g/dL (12.0-16.0); Lymphocytes Absolute Auto 1900 /uL (1100-4500); Lymphocytes Percent Auto 31.2 % (25-40); Mean Corpuscular HGB Conc 33.9 % (30-36); Mean Corpuscular Hemoglobin 30.5 PG (26-34); Mean Corpuscular Volume 90.1 fL (80-100); Monocytes Absolute Auto 400 /uL (0-900); Monocytes Percent Auto 5.9 % (3-14); Neutrophils Absolute Auto 3700 /uL (1500-7000); Neutrophils Percent Auto 59.2 % (50-75); Platelet Count 244 X10^3/uL (150-400); Red Blood Cell Count 4.73 X10^6/uL (4.0-5.2); Red Cell Distribution Width 14.3 % (11.6-14.8); White Blood Cell Count 6.2 X10^3/uL (4.5-11.0)
[2023-03-29 18:33] LABS: Alanine Aminotransferase 32 IU/L (<35); Albumin Globulin Ratio 1.3 (1.0-2.8); Alkaline Phosphatase 52 U/L (38-126); Aspartate Aminotransferase 32 IU/L (14-36); BUN Creatinine Ratio 30.8 (6-22); Bilirubin Total 0.4 mg/dL (0.2-1.3); Blood Urea Nitrogen 16 mg/dL (7-17); Calcium 8.9 mg/dL (8.4-10.2); Carbon Dioxide 30 mmol/L (22-32); Chloride 103 mmol/L (98-107); Estimated Glomerular Filt Rate > 60 mL/min (>60); Globulin 3.2 g/dL (1.7-4.1); Glucose 167 mg/dL (80-110); HEMOLYSIS 17 (0-50); Potassium 3.6 mmol/L (3.4-5.1); Sodium 138 mmol/L (137-145); Total Protein 7.2 g/dL (6.3-8.2)
== END ==
LOC: LAB 16:35
PROVIDERS: PCP Family Medicine; Referring Provider Family Medicine; Visit Provider Family Medicine
DX: R10.9 Unspecified abdominal pain (principal); K57.32 Diverticulitis of large intestine without perforation or abscess without bleeding
CPT/HCPCS: 36415; 80053; 85025

== ENCOUNTER → 2023-03-30 13:27 | Outpatient (CLI) | payer MEDICARE, OTHER, SELFPAY ==
--- NOTE | 2023-03-30 13:29 | DI.CT.S_ITS ---
PROCEDURE: CT ABDOMEN PELVIS W CON INDICATIONS: abd pain with diverticulous TECHNIQUE: After the administration of intravenous contrast, axial sections acquired from the lung bases to the pubic symphysis. Coronal and sagittal reformats were performed. For radiation dose reduction, the following was used: automated exposure control, adjustment of mA and/or kV according to patient size. COMPARISON: [facility], CT, ABDOMEN/PELVIS WITH CONTRAST, 12/28/2010, 17:06. FINDINGS: Image quality: Diagnostic. Lower Chest: No significant findings. ABDOMEN: Liver: No solid mass. Diffuse hypoattenuation of the liver. Gallbladder: Cholelithiasis without acute cholecystitis. Biliary ducts: No biliary dilation. Pancreas: No ductal dilation. Spleen: Size is within normal limits. Adrenal Glands: No adrenal nodules. Kidneys and Ureters: No hydronephrosis. No solid mass. No complex renal cystic lesion which requires follow up. Stomach and Bowel: Small hiatal hernia. Small and large bowel is normal in caliber, without obstruction. A few scattered diverticuli. No diverticulitis. Normal appendix (06/13). No pneumatosis, pneumoperitoneum or portal venous gas. Peritoneum: No abnormal intraperitoneal fluid. Ventral Wall: Slightly increased size of left infraumbilical fat containing ventral hernia with measuring 3.5 cm (2/68). Abdominal Nodes: No retroperitoneal or mesenteric adenopathy by size criteria. A few prominent, but not enlarged, mesenteric lymph nodes with mild fat stranding, stable (2/39). Vessels: Aorta and inferior vena cava are normal in size. Minimal calcification of the bilateral iliac vessels. PELVIS: Pelvic Organs: Hysterectomy. Bladder: No bladder wall thickening, accounting for underdistention. Pelvic Nodes: No enlarged lymph nodes. Miscellaneous: No inguinal hernias are seen. Bones: No acute fractures. No aggressive appearing lytic or blastic osseous lesion. Mild multilevel degenerative changes of the spine. IMPRESSION: 1. No acute pathology in the abdomen or pelvis. Specifically, a few scattered diverticuli, without diverticulitis. Normal appendix. 2. Stable appearance of mild fat stranding of the mesentery with a few prominent lymph nodes (ryan mesentery) which is nonspecific, stable compared to prior CT dated December 28, 2010. 3. Diffuse hypoattenuation of the liver suggestive of steatosis. 4. Cholelithiasis without acute cholecystitis. No biliary ductal dilatation. 5. Slightly increased size of fat containing left infraumbilical ventral hernia. Dictated by: Melecio Junior M.D. on 03/30/2023 at 16:47 Approved by: Melecio Junior M.D. on 03/30/2023 at 17:34
== END ==
PROVIDERS: PCP Family Medicine; Referring Provider Family Medicine; Visit Provider Family Medicine
DX: K57.32 Diverticulitis of large intestine without perforation or abscess without bleeding (principal); R10.9 Unspecified abdominal pain; K80.20 Calculus of gallbladder without cholecystitis without obstruction; K43.9 Ventral hernia without obstruction or gangrene; K44.9 Diaphragmatic hernia without obstruction or gangrene
CPT/HCPCS: 74177

== ENCOUNTER → 2023-04-05 06:48 | Outpatient (CLI) | payer MEDICARE, OTHER, SELFPAY ==
--- NOTE | 2023-04-05 06:49 | DI.US.S_ITS ---
PROCEDURE: US PELVIC COMPLETE INDICATIONS: RIGHT PELVIC PAIN TECHNIQUE: Real-time scanning was performed of the pelvic organs, with image documentation. Additional endovaginal scanning was necessary due to incomplete visualization of the adnexal and endometrial structures by transabdominal scanning. COMPARISON: [facility], CT, CT ABDOMEN PELVIS W CON, 03/30/2023, 14:42. FINDINGS: Uterus: Surgically absent. Ovaries: Surgically absent. No adnexal masses. Other: No pathologic free abdominal or pelvic fluid. Appendix not seen. IMPRESSION: Status post hysterectomy and bilateral salpingo oophorectomy. No abnormalities are seen. The appendix is not identified. We strive to produce accurate, complete, and clear reports of imaging services. To assist us in improving patient care, this report was composed using standard report templates and voice recognition software. Therefore, it may contain abnormal punctuation, insertions and/or omissions. Occasional wrong-word or sound-alike substitutions may occur. Though we review the report and make efforts to correct it, we do recommend that the report be read carefully in proper context to recognize any text inaccuracies. Dictated by: Ismael Roberts M.D. on 04/05/2023 at 8:49 Approved by: Ismael Roberts M.D. on 04/05/2023 at 8:51
== END ==
LOC: US 06:48
PROVIDERS: PCP Family Medicine; Referring Provider Family Medicine; Visit Provider Family Medicine
DX: K57.32 Diverticulitis of large intestine without perforation or abscess without bleeding (principal); R10.2 Pelvic and perineal pain; Z90.710 Acquired absence of both cervix and uterus; Z90.722 Acquired absence of ovaries, bilateral
CPT/HCPCS: 76830; 76856

== ENCOUNTER 2023-08-26 14:32 | Emergency (ER) | payer MEDICARE, OTHER, SELFPAY ==
[2023-08-26 14:42] VITALS: BP 115/60; PULSE 80; RESP 18; TEMP 36.9; O2SAT 98; BMI 29.0
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
[2023-08-26] MEDS: BACITRACIN OINT 0.9 GM PCKT 1 APPLIC TOP (15:30)
[2023-08-26] MEDS: TET,DIPH,PERTUSS(ACELL),VAC/PF 0.5 ML SYRINGE IM (15:31)
[2023-08-26 15:50] VITALS: BP 139/81; PULSE 77; RESP 20; O2SAT 99
[2023-08-26 16:02] VITALS: BP 103/59; PULSE 72; RESP 16; O2SAT 99
== END 2023-08-26 15:56 | disposition home or self-care (01) ==
PROVIDERS: Emergency Provider Physician Assistant Medical; PCP Family Medicine
DX: T23.002A Burn of unspecified degree of left hand, unspecified site, initial encounter (principal); Z79.899 Other long term (current) drug therapy; Z23 Encounter for immunization
CPT/HCPCS: 90471; 99283; 99284; 90715

== ENCOUNTER → 2023-10-18 16:12 | Outpatient (CLI) | payer MEDICARE, OTHER, SELFPAY ==
[2023-10-18 21:37] LABS: Add Manual Diff / Slide Review NO; Basophils Absolute Auto 100 /uL (0-100); Eosinophils Absolute Auto 100 /uL (0-450); Hemoglobin 14.4 g/dL (12.0-16.0); Lymphocytes Absolute Auto 2600 /uL (1100-4500); Lymphocytes Percent Auto 41.4 % (25-40); Mean Corpuscular HGB Conc 33.4 % (30-36); Mean Corpuscular Hemoglobin 30.6 PG (26-34); Mean Corpuscular Volume 91.7 fL (80-100); Monocytes Absolute Auto 400 /uL (0-900); Monocytes Percent Auto 7.2 % (3-14); Neutrophils Absolute Auto 3000 /uL (1500-7000); Neutrophils Percent Auto 48.4 % (50-75); Platelet Count 254 X10^3/uL (150-400); Red Blood Cell Count 4.69 X10^6/uL (4.0-5.2); Red Cell Distribution Width 14.2 % (11.6-14.8); White Blood Cell Count 6.2 X10^3/uL (4.5-11.0)
[2023-10-18 22:31] LABS: Alanine Aminotransferase 31 IU/L (<35); Albumin 4.3 g/dL (3.5-5.0); Albumin Globulin Ratio 1.5 (1.0-2.8); Bilirubin Total 0.6 mg/dL (0.2-1.3); Globulin 2.8 g/dL (1.7-4.1); Total Protein 7.1 g/dL (6.3-8.2)
[2023-10-18 22:33] LABS: HEMOLYSIS 66 (0-50)
[2023-10-18 22:34] LABS: Alkaline Phosphatase 51 U/L (38-126); Aspartate Aminotransferase 35 IU/L (14-36)
== END ==
PROVIDERS: PCP Family Medicine; Referring Provider Podiatrist; Visit Provider Podiatrist
DX: L60.3 Nail dystrophy (principal)
CPT/HCPCS: 36415; 80076; 85025

== ENCOUNTER → 2024-02-05 | Outpatient (CLI) | payer MEDICARE, OTHER, SELFPAY ==
--- NOTE | 2024-02-05 16:10 | DI.MG.S_ITS ---
BILATERAL DIGITAL SCREENING MAMMOGRAM 3D/2D WITH CAD: 02/05/2024 CLINICAL: Routine screening. Family history of breast cancer. Comparison is made to exams dated: 12/22/2022 mammogram, 12/06/2021 mammogram, and 10/22/2020 mammogram - [facility]. There are scattered areas of fibroglandular density (category b / 25%-50% glandular tissue). Current study was also evaluated with a Computer Aided Detection (CAD) system. There is a biopsy clip in the right breast. No significant masses, calcifications, or other findings are seen in either breast. There has been no significant interval change. IMPRESSION: BENIGN There is no mammographic evidence of malignancy. A 1 year screening mammogram is recommended. Based on the Tyrer Cuzick model (a risk assessment model) the patient's lifetime risk is 4.2% and her 10 year risk is 3.4%. According to the ACR, ACS, and NCCN guidelines, an annual breast MRI exam along with mammogram is recommended if the patient's lifetime risk is 20% or greater. This exam was interpreted at Station ID: [id number]. NOTE: For mammograms, a report in lay terms will be sent to the patient. Approximately 15% of breast malignancies will not be visualized mammographically. In the management of a palpable breast mass, a negative mammogram must not discourage biopsy of a clinically suspicious lesion. Electronically Signed By: Kaylan Hutchinson M.D., Ph.D. fabián/yaya:02/07/2024 19:59:07 copy to: SHERIN GONZALEZ letter sent: Normal Exam ACR BI-RADS Category 2: Benign
== END ==
PROVIDERS: PCP Family Medicine; Referring Provider Family Medicine; Visit Provider Family Medicine
DX: Z12.31 Encounter for screening mammogram for malignant neoplasm of breast (principal); Z80.3 Family history of malignant neoplasm of breast
CPT/HCPCS: 77063; 77067

== ENCOUNTER → 2024-03-07 07:11 | Outpatient (CLI) | payer MEDICARE, OTHER, SELFPAY ==
[2024-03-07 08:08] LABS: Alanine Aminotransferase 25 IU/L (<35); Albumin Globulin Ratio 1.6 (1.0-2.8); Alkaline Phosphatase 64 U/L (38-126); Aspartate Aminotransferase 23 IU/L (14-36); Bilirubin Total 0.6 mg/dL (0.2-1.3); Bilirubin Unconjugated 0.4 mg/dL (0.0-1.1); Globulin 2.5 g/dL (1.7-4.1); HEMOLYSIS < 15 (0-50); Total Protein 6.5 g/dL (6.3-8.2)
== END ==
PROVIDERS: PCP Family Medicine; Referring Provider Family Medicine; Visit Provider Family Medicine
DX: E78.2 Mixed hyperlipidemia (principal); B35.1 Tinea unguium
CPT/HCPCS: 36415; 80076

== ENCOUNTER → 2024-03-27 08:02 | Outpatient (CLI) | payer MEDICARE, OTHER, SELFPAY ==
[2024-03-27 09:03] LABS: Cholesterol 155 mg/dL (140-199); HDL Cholesterol 50 mg/dL (40-60); LDL Cholesterol Calculated 86 mg/dL (<100); Triglycerides 94 mg/dL (35-150)
[2024-03-27 09:32] LABS: TSH w/ Reflex to FT4 < 0.02 uIU/mL (0.47-4.68)
[2024-03-27 10:05] LABS: Free T4, Direct Thyroxine 2.06 ng/dL (0.78-2.19)
== END ==
PROVIDERS: PCP Family Medicine; Referring Provider Family Medicine; Visit Provider Family Medicine
DX: E78.5 Hyperlipidemia, unspecified (principal); E03.9 Hypothyroidism, unspecified
CPT/HCPCS: 36415; 80061; 84439; 84443

== ENCOUNTER → 2024-07-01 11:50 | Outpatient (CLI) | payer MEDICARE, OTHER, SELFPAY ==
[2024-07-01 13:32] LABS: TSH w/ Reflex to FT4 < 0.02 uIU/mL (0.47-4.68)
[2024-07-01 13:56] LABS: Free T4, Direct Thyroxine 1.51 ng/dL (0.78-2.19)
== END ==
PROVIDERS: PCP Family Medicine; Referring Provider Family Medicine; Visit Provider Family Medicine
DX: E03.9 Hypothyroidism, unspecified (principal)
CPT/HCPCS: 36415; 84439; 84443

== ENCOUNTER → 2024-09-11 15:50 | Outpatient (CLI) | payer MEDICARE, OTHER, SELFPAY ==
[2024-09-11 17:40] LABS: TSH w/ Reflex to FT4 0.26 uIU/mL (0.47-4.68)
[2024-09-11 21:11] LABS: Free T4, Direct Thyroxine 1.33 ng/dL (0.78-2.19)
== END ==
PROVIDERS: PCP Family Medicine; Referring Provider Family Medicine; Visit Provider Family Medicine
DX: E03.9 Hypothyroidism, unspecified (principal)
CPT/HCPCS: 36415; 84439; 84443